=== PATIENT | female | born 1945 | race Caucasian/White ===

== ENCOUNTER 2021-12-12 20:16 | Inpatient (IN) ==
[2021-12-13] MEDS ORDERED: Naloxone 0.4 MG/ML INJ IVP PRN (01:30)
[2021-12-13] MEDS ORDERED: Acetaminophen 325 MG TABLET PO PRN (01:30)
[2021-12-13] MEDS ORDERED: Ondansetron 4 MG/2 ML VIAL IVP PRN (01:30)
[2021-12-13] MEDS ORDERED: Perflutren Lipid Microsphere 1.3 ML in 0.9 % Sodium Chloride 8.7 ML IVP PRN (01:32)
[2021-12-13 02:30] LABS: Estimated Average Glucose 243 mg/dl; Hemoglobin A1C 10.1 %
[2021-12-13 02:39] LABS: Basophils # 0.1 K/mcL (0.0-0.2); Basophils % 0.4 %; Eosinophils # 0.2 K/mcL (0.0-0.6); Eosinophils % 1.6 %; Hematocrit 30.4 % (35.3-44.9); Hemoglobin 9.4 g/dL (11.5-15.4); Immature Granulocytes % 0.4 % (0-4); Lymphocytes # 2.5 K/mcL (0.6-4.6); Lymphocytes % 22.1 %; Mean Corpuscular HGB Conc 30.9 g/dL (31.6-35.5); Mean Corpuscular Hemoglobin 27.5 pg (28.0-33.3); Mean Corpuscular Volume 88.9 fL (83.0-100.0); Mean Platelet Volume 11.6 fL (9.4-12.4); Monocytes # 0.7 K/mcL (0.0-1.3); Monocytes % 6.1 %; Platelet Count 342 K/mcL (140-400); Red Blood Count 3.42 M/mcL (3.82-4.97); Red Cell Distribution Width 15.2 % (11.5-14.5); Segmented Neutrophils % 69.4 %; White Blood Count 11.5 K/mcL (4.3-11.1)
[2021-12-13 02:44] LABS: Alanine Aminotransferase 12 Units/L (7-52); Albumin 3.3 g/dL (3.5-5.7); Albumin/Globulin Ratio 1.1 (1.1-2.2); Alkaline Phosphatase 74 Units/L (34-104); Aspartate Amino Transferase 17 Units/L (13-39); BUN/Creatinine Ratio 14 (6-26); Bilirubin,Total 0.6 mg/dL (0.3-1.0); Blood Urea Nitrogen 13 mg/dL (8-23); Calcium 8.1 mg/dL (8.6-10.3); Carbon Dioxide 26 mEq/L (23-29); Chloride 104 mEq/L (98-107); Chol/HDL Ratio 3.1 (0-4.9); Cholesterol 90 mg/dL (< 200); Glucose 200 mg/dL (70-105); HDL Cholesterol 29 mg/dL (40-59); Iron 28 mcg/dL (50-170); LDL Cholesterol,Calculated 40 mg/dL (< 100); Magnesium 1.3 mg/dL (1.6-2.6); Osmolality,Calculated 296 (280-300); Phosphorous 2.8 mg/dL (2.7-4.5); Sodium 140 mEq/L (136-145); Total Protein 6.3 g/dL (6.4-8.9); Triglycerides 107 mg/dL (< 150); eGFR For African Americans > 60 (> 60); eGFR For Non-African Americans 57 (> 60)
[2021-12-13 02:47] LABS: INR 1.2; Prothrombin Time 13.9 Seconds (9.4-12.1)
[2021-12-13 02:49] LABS: Activated Partial Thrombo Time 31.6 Seconds (26.0-36.0)
[2021-12-13 03:03] LABS: Ferritin 9 ng/mL (10-120)
[2021-12-13 03:11] LABS: Folate > 22.3 ng/mL (3.0-16.0); Vitamin B12 462 pg/mL (250-1100)
[2021-12-13 03:50] LABS: % Iron Saturation 8 % (15-50); Transferrin 239 mg/dL (203-362)
[2021-12-13] MEDS ORDERED: lisinopriL 20 MG TABLET PO SCH ×2 (04:12→09:00)
[2021-12-13] MEDS ORDERED: Iron Sucrose Complex 400 MG in 0.9 % Sodium Chloride 250 ML IVPB ONE (06:54)
[2021-12-13 07:04] LABS: Troponin I 0.05 ng/mL (< 0.04)
[2021-12-13 07:14] LABS: Thyroid Stimulating Hormone 3.538 mcIU/mL (0.340-5.600)
[2021-12-13] MEDS: Insulin LISPRO 300 UNITS/3 ML VIAL SUBQ SCH ×3 (08:36→16:31)
[2021-12-13] MEDS: carvediloL 6.25 MG TABLET PO SCH ×2 (08:39→16:31)
[2021-12-13] MEDS: Furosemide 20 MG/2 ML VIAL IVP SCH ×2 (08:40→08:44)
[2021-12-13] MEDS: cefTRIAXone 1,000 MG in Water for inj. (sterile) 10 ML IVP SCH (08:41)
[2021-12-13] MEDS: Aspirin 81 MG TAB.CHEW PO SCH (08:41)
[2021-12-13] MEDS ORDERED: cefTRIAXone 1,000 MG in 0.9 % Sodium Chloride Mini Bag 100 ML IVPB SCH (09:00)
[2021-12-13] MEDS ORDERED: Albumin 25% 25gram/100mL 25 GM/100 ML IV.SOLN IVPB SCH (09:00)
[2021-12-13] MEDS ORDERED: Furosemide 20 MG/2 ML VIAL IVP SCH (09:00)
[2021-12-13] MEDS: amLODIPine 5 MG TABLET PO SCH (11:54)
[2021-12-13] MEDS: *HR* Heparin 5,000 UNIT/ML VIAL SQ SCH ×2 (13:28→20:16)
[2021-12-13] MEDS ORDERED: Insulin DETEMIR 100 UNIT/ML X5UNITS SUBQ SCH (21:00)
[2021-12-14] MEDS: *HR* Heparin 5,000 UNIT/ML VIAL SQ SCH ×2 (05:25→12:38)
[2021-12-14 05:38] LABS: Hematocrit 28.7 % (35.3-44.9); Hemoglobin 8.7 g/dL (11.5-15.4); Mean Corpuscular HGB Conc 30.3 g/dL (31.6-35.5); Mean Corpuscular Hemoglobin 27.1 pg (28.0-33.3); Mean Corpuscular Volume 89.4 fL (83.0-100.0); Mean Platelet Volume 11.6 fL (9.4-12.4); Platelet Count 286 K/mcL (140-400); Red Blood Count 3.21 M/mcL (3.82-4.97); Red Cell Distribution Width 15.3 % (11.5-14.5)
[2021-12-14 05:58] LABS: BUN/Creatinine Ratio 12 (6-26); Blood Urea Nitrogen 12 mg/dL (8-23); Calcium 8.3 mg/dL (8.6-10.3); Carbon Dioxide 31 mEq/L (23-29); Chloride 103 mEq/L (98-107); Glucose 76 mg/dL (70-105); Magnesium 1.9 mg/dL (1.6-2.6); Osmolality,Calculated 293 (280-300); Potassium 3.1 mEq/L (3.5-5.1); Sodium 142 mEq/L (136-145); eGFR For African Americans > 60 (> 60); eGFR For Non-African Americans 55 (> 60)
[2021-12-14] MEDS: Insulin LISPRO 300 UNITS/3 ML VIAL SUBQ SCH ×2 (07:27→12:15)
[2021-12-14] MEDS: cefTRIAXone 1,000 MG in Water for inj. (sterile) 10 ML IVP SCH (08:11)
[2021-12-14] MEDS: Aspirin 81 MG TAB.CHEW PO SCH (08:11)
[2021-12-14] MEDS: amLODIPine 5 MG TABLET PO SCH (08:11)
[2021-12-14] MEDS: carvediloL 6.25 MG TABLET PO SCH (08:11)
[2021-12-14] MEDS: Furosemide 20 MG/2 ML VIAL IVP SCH (08:11)
[2021-12-14 11:23] VITALS: BP 173/71; PULSE 65; TEMP 98; O2SAT 97
[2021-12-15] MEDS ORDERED: *HR* Glimepiride 4 MG TABLET PO SCH (09:00)
== END 2021-12-14 14:18 | disposition home or self-care (01) | DRG 280 ==
LOC: 2NENU → SUATTDRO 12-13 00:33
PROVIDERS: ADMIT Internal Medicine; ATTEND Internal Medicine